=== PATIENT | female | born 1980 | race African-American/Black ===

== ENCOUNTER 2021-02-10 12:16 | Emergency (ER) | payer OTHER ==
[~2021-02-10] VITALS: Ht 162.6 cm; Wt 84.5 kg
[2021-02-10 12:22] VITALS: Ht 162.6 cm; Wt 84.5 kg
[2021-02-10 12:53] LABS: BASOPHILS 0.6 % (0-2); EOSINOPHILS 18.9 % (0-7); HEMOGLOBIN 8.7 g/dL (12-16); LYMPHOCYTES 16.7 % (15-50); MCHC 32.4 g/dL (31.0-37.0); MCV 83.2 fL (80.0-100.0); MEAN PLATELET VOLUME 5.6 fL (7.4-10.4); MONOCYTES 7.2 % (2-11); NEUTROPHILS 56.6 % (40-80); PLATELET COUNT 393 10x3/uL (130-400); RBC 3.24 10x6/uL (4.00-5.40); RDW 16.6 % (11.5-14.5); WBC 9.9 10x3/uL (4.8-10.8)
[2021-02-10 12:58] LABS: CALC OSMOLALITY 273 mosm/kg (275-300); CALCIUM 8.7 mg/dL (8.5-10.1); CARBON DIOXIDE 21.5 mmol/L (21.0-32.0); CHLORIDE - SERUM 103 mmol/L (98-107); CREATININE - SERUM 0.7 mg/dL (0.6-1.3); GLUCOSE 211 mg/dL (74-106); POTASSIUM - SERUM 3.6 mmol/L (3.5-5.1); SODIUM 135 mmol/L (136-145); UREA NITROGEN 7 mg/dL (7-18); eGFR NON AFRICAN AMERICAN > 90 mL/min (90-120)
[2021-02-10 13:07] LABS: ALBUMIN 2.6 g/dL (3.4-5.0); ALKALINE PHOSPHATASE 80 U/L (30-120); ALT (SGPT) 16 U/L (10-68); BILIRUBIN - TOTAL 0.28 mg/dL (0.2-1.3); PROTEIN - SERUM 6.9 g/dL (6.4-8.2)
[2021-02-10 13:09] LABS: TROPONIN-I < 0.017 ng/mL (0.000-0.060)
[2021-02-10 13:56] LABS: KETONE SMALL mg/dL (NEGATIVE); NITRITE NEGATIVE (NEGATIVE)
[2021-02-10 13:57] LABS: BILIRUBIN NEGATIVE (NEGATIVE); UROBILINOGEN NORMAL mg/dL (< 2)
[2021-02-10 13:58] LABS: SQUAMOUS EPITHELIAL 0-5 HPF (0-4); WHITE CELLS - URINE 0-5 HPF (0-4)
[2021-02-10 13:59] LABS: AMORPHOUS SEDIMENT <1+ LPF (NONE SEEN); BACTERIA FEW HPF (NONE SEEN)
--- NOTE | 2021-02-10 14:56 | NUR ---
THIS RN TO BEDSIDE FOR NST. PT UP TO BR PER THIS RN. STEADY GAIT NOTED. DENIES DIZZINESS/LIGHTHEADEDNESS.
--- NOTE | 2021-02-10 15:36 | NUR ---
REACTIVE NST NOTED PER THIS RN. BASELINE 130 WITH 15X15 ACCEL, MODERATE VARIBILITY, WITH 1 VARIBLE DECEL NOTED. FM PALPABLE BY THIS RN AND PT REPORT FEELING FM WELL. 1 UC NOTED, PT DENIES FEELING. WILL TAKE STRIP FOR MD TO REVIEW.
--- NOTE | 2021-02-10 15:54 | NUR ---
DR. SPENCER REVIEWS TRACING. NO ORDERS FROM OB STAND POINT. WILL NOTIFY ED RN.
--- NOTE | 2021-02-10 16:07 | NUR ---
FANTA NAVA RN NOTIFIED THAT DR. SPENCER HAD REVIEWED STRIP AND CLEARED PT FROM OB STAND POINT. PER BIANCA NAVA SHE WILL NOTIFY FANTA CASTRO.
[2021-02-10 16:38] VITALS: BP 147/85
== END 2021-02-10 16:38 | disposition home or self-care (01) ==
LOC: D.ER 12:16
PROVIDERS: Student in an Organized Health Care Education/Training Program
DX: O24.419 Gestational diabetes mellitus in pregnancy, unspecified control (principal); Z3A.00 Weeks of gestation of pregnancy not specified; D64.9 Anemia, unspecified; R42 Dizziness and giddiness; O99.013 Anemia complicating pregnancy, third trimester